=== PATIENT | female | born 1985 | race African-American/Black ===

== ENCOUNTER 2022-07-12 16:50 | Emergency (ER) | payer OTHER ==
[~2022-07-12] VITALS: Ht 180.3 cm; Wt 86.0 kg
[2022-07-13] MEDS ORDERED: AZITTAB PO (00:47)
[2022-07-13] MEDS ORDERED: MONT-8 PO (00:47)
[2022-07-13 00:49] VITALS: BP 141/58
== END 2022-07-13 00:59 | disposition home or self-care (01) ==
LOC: ER 16:50
DX: H66.92 Otitis media, unspecified, left ear (principal)